=== PATIENT | female | born 1995 | race Two or more races ===

== ENCOUNTER 2017-11-29 08:54 | Emergency (ER) | payer MEDICAID ==
[2017-11-29 09:00] VITALS: BP 112/70; PULSE 75; RESP 18; TEMP 97.7; O2SAT 100
--- NOTE | 2017-11-29 09:04 | EDPHY ---
H & P Stated Complaint: Burning in bronchial area x 3 days;hx URI;sore from cough; wants pain meds Time Seen by Provider: 11/29/17 09:03 HPI/ROS: HPI: This is a 22-year-old female who presents with Chief Complaint: Burning in bronchial area x 3 days;hx URI;sore from cough; wants pain meds Location: chest Quality: Burning pain Duration: 3 days Signs and Symptoms: + subjective low grade fever, no shortness of breath at rest, no shortness of breath on exertion, + nonproductive hacking cough,+ pleuritic chest pain, no palpitations, no lower extremity edema, no wheezing, no fever, no injury/trauma, no hemoptysis, no carpal pedal spasms Timing: Intermittent in nature Severity: Moderate Context: Patient reports that she had sudden onset 3 days ago of generalized fatigue and subjective low-grade fevers accompanied by a dry hacking cough. She reports that the cough is worse at night and nonproductive in nature. She reports that every time she coughs she gets a bilateral burning anterior and lateral chest pain. She denies any lower extremity edema/shortness of breath. No recent long distance travel. Has Norplant; LMP 3 weeks ago. Nonsmoker. Received influenza vaccine this year. Denies nasal congestion/runny nose/ear pain/sinus pressure. No history of lung disease. Modifying Factors: No [id number]-tnrypad medications tried Comment: ROS: see HPI Constitutional: No fever, no chills, no weight loss Eyes: No blurred vision Respiratory: No shortness of breath, + cough Cardiovascular: No chest pain, no palpitations, no lower extremity edema Gastrointestinal: No nausea, no vomiting, no diarrhea Genitourinary: No dysuria Extremities: No myalgias Neurologic: No weakness, no numbness Skin: No rashes Hematologic: No bruising, no bleeding MEDICAL/SURGICAL/SOCIAL HISTORY: Medical history: Depression, anxiety Surgical history: Denies Social history: Employed. CONSTITUTIONAL: Well-developed, well-nourished young adult female, awake and alert, no obvious distress HEENT: Atraumatic and normocephalic, PERRL, EOMI. Tympanic membranes clear. Oropharynx clear, no exudate and moist pink mucosa. Airway patent. No lymphadenopathy. No meningismus. Cardiovascular: Normal S1/S2, regular rate, regular rhythm, without murmur rub or gallop. PULMONARY/CHEST: Symmetrical and nontender. Clear to auscultation bilaterally. Good air movement. No accessory muscle usage. ABDOMEN: Soft, nondistended, nontender, no rebound, no guarding, no peritoneal signs, no masses or organomegaly. No CVAT. EXTREMITIES: 2/2 pulses, strength 5/5, no deformities, no clubbing, no cyanosis or edema. NEUROLOGICAL: no focal neuro deficits. GCS 15. SKIN: Warm and dry, no erythema. no rash. Good capillary refill. Source: Patient Exam Limitations: No limitations - Personal History LMP (Females 10-55): Extended Cycle BCP/Inj Current Tetanus Diphtheria and Acellular Pertussis (TDAP): Unsure - Medical/Surgical History Other PMH: depression/anxiety - Social History Smoking Status: Never smoked Constitutional: Initial Vital Signs Temperature (C) 36.5 C 11/29/17 08:54 Heart Rate 75 11/29/17 08:54 Respiratory Rate 18 11/29/17 08:54 Blood Pressure 112/70 11/29/17 08:54 O2 Sat (%) 100 11/29/17 08:54 O2 Delivery Mode Room Air Allergies/Adverse Reactions: No Known Allergies Allergy (Unverified 11/29/17 09:00) Home Medications: Medication Instructions Recorded Albuterol Sulfate [PROVENTIL HFA] 1 - 2 puffs IH Q4 PRN #1 hfa.aer.ad 11/29/17 Benzonatate [Tessalon Pearles (RX)] 100 mg PO Q6 PRN #12 cap 11/29/17 Control Implant 11/29/17 Citalopram [CeleXA] 20 mg PO 11/29/17 predniSONE [predniSONE TAPER] 10 mg PO DAILY 6 Days ea 11/29/17 Medical Decision Making - Diagnostics Imaging Results: Imaging Impressions Chest X-Ray 11/29/17 09:07 Impression: 1. Mild bronchitis. 2. No focal pneumonia. ED Course/Re-evaluation: Chest x-ray and oral medications ordered Vital signs reviewed upon arrival and stable without any systemic signs. Symptoms for 3 days not a Tamiflu candidate. Given prednisone, ibuprofen, Tessalon Perles for suspected viral bronchitis. CXR my read no opacity, effusion PE Rule: 1. Age greater equal to 50: No 2. Heart rate greater or equal to 100: No 3. SaO2 on room air less than 95%: No 4. Unilateral leg swelling: No 5. Hemoptysis: No 6. Recent surgery or trauma: No Score= 0; low risk pulmonary embolism This patient was seen under the supervision of my secondary supervising physician. I evaluated care for this patient independently. Discussed this patient with Dr. Taylor who did not see the patient. Differential Diagnosis: Differential diagnosis includes but is not limited to upper respiratory infection, viral syndrome, bronchitis, pneumonia, pulmonary embolism. - Data Points Medications Given: Discontinued Medications Benzonatate (Tessalon Pearles) 200 mg PO EDNOW ONE Stop: 11/29/17 09:09 Last Admin: 11/29/17 09:13 Dose: 200 mg Ibuprofen (Motrin) 800 mg PO EDNOW ONE Stop: 11/29/17 09:09 Last Admin: 11/29/17 09:14 Dose: 800 mg Prednisone (Prednisone) 60 mg PO EDNOW ONE Stop: 11/29/17 09:09 Last Admin: 11/29/17 09:14 Dose: 60 mg Departure - Departure Disposition: Home, Routine, Self-Care Clinical Impression: Acute viral bronchitis Condition: Good Instructions: Pleurisy (ED), Acute Bronchitis (ED) Additional Instructions: Chest x-ray today shows no signs of pneumonia. It appears that you have a viral bronchitis. Consume a minimum of 8-10 glasses of water or electrolyte fluid replacement drinks that include Gatorade, Powerade, Pedialyte. Rest as much as possible until you are feeling better. Take Tylenol 650 mg every 4 hours and/or Ibuprofen 600 mg every 8 hours with food as needed for pain. Use Tessalon Perles every 6 hours as needed for cough. You may take Mucinex [id number] as needed for congestion. Return to the ER immediately if you experience fevers/chills, shortness of breath, abdominal pain, inability to tolerate oral intake, or any other symptoms that concern you. Referrals: PCP Not In,Dictionary [Medical Doctor] - As per Instructions [facility],. [Clinic] - As per Instructions Prescriptions: Albuterol Sulfate [PROVENTIL HFA] 1 - 2 puffs IH Q4 PRN #1 hfa.aer.ad PRN Reason: Short Of Breath/Dyspnea Benzonatate [Tessalon Pearles (RX)] 100 mg PO Q6 PRN #12 cap PRN Reason: Cough, Moderate predniSONE [predniSONE TAPER] 10 mg PO DAILY 6 Days ea
[2017-11-29] MEDS ORDERED: IBUPROFEN 800 MG TAB PO ONE (09:08)
[2017-11-29] MEDS ORDERED: predniSONE 20 MG TAB PO ONE (09:08)
[2017-11-29] MEDS ORDERED: BENZONATATE 100 MG CAP PO ONE (09:08)
== END 2017-11-29 09:48 | disposition home or self-care (01) ==
DX: J02.8 Acute pharyngitis due to other specified organisms (principal); B97.89 Other viral agents as the cause of diseases classified elsewhere
CPT/HCPCS: J7512